=== PATIENT | male | born 1980 | race Caucasian/White ===

== ENCOUNTER 2017-02-13 17:56 | Inpatient (IN) | payer OTHER ==
[2017-02-13] VITALS (7 sets, daily range): BP systolic 120–143; BP diastolic 63–77; PULSE 81–94; RESP 18–20; TEMP 98.1; O2SAT 94–97
[~2017-02-13] VITALS: Ht 170.2 cm; Wt 89.5 kg
[2017-02-13] MEDS: ACETAMINOPHEN 1000 MG/100 ML VIAL IV SCH (05:45)
[~2017-02-13 17:56] MED LIST: LACTATED RINGER'S 1000 ML INJ 1,000 ML IV ONE; PROPOFOL 200 MG/20 ML AMP IV ONE
[2017-02-13] MEDS ORDERED: ONDANSETRON HCL 4 MG/2 ML VIAL ONE (18:09)
[2017-02-13] MEDS ORDERED: MORPHINE SULFATE 8 MG/ML INJ ONE (18:09)
[2017-02-13] MEDS ORDERED: SODIUM CHLORIDE 0.9% FLUSH 5 ML FLUSH IVF PRN (18:15)
[2017-02-13 18:29] LABS: I-STAT POTASSIUM 3.5 MMOL/L (3.5-4.9)
[2017-02-13] MEDS ORDERED: ceFAZolin 2 GM PREMIX 50 ML IV ONE (18:30)
[2017-02-13] MEDS ORDERED: DIPHTH/TETANUS/ACEL PERTUSSIS (BOOSTER) 0.5 ML VIAL/PFS IM ONE (18:30)
[2017-02-13 18:33] LABS: AUTOMATED NEUTROPHIL # 12.9 TH/MM3 (1.8-7.7); BASOPHIL # 0.1 TH/MM3 (0-0.2); BASOPHIL % 0.5 % (0.0-2.0); EOSINOPHIL # 0.1 TH/MM3 (0-0.4); EOSINOPHIL % 0.8 % (0.0-4.0); HEMATOCRIT 39.9 % (39.0-51.0); HEMO FLAGS AUTO DIFF; LYMPH % 12.4 % (9.0-44.0); MEAN CORPUSCULAR HEMOGLOBIN 29.9 PG (27.0-34.0); MEAN CORPUSCULAR HGB CONC 34.4 % (32.0-36.0); MONO % 5.3 % (0.0-8.0); PLATELET COUNT 219 TH/MM3 (150-450); RED BLOOD COUNT 4.58 MIL/MM3 (4.50-5.90); RED CELL DISTRIBUTION WIDTH 13.7 % (11.6-17.2)
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
[2017-02-13 18:54] LABS: BICARBONATE 24.9 MEQ/L (21.0-32.0)
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
[2017-02-13] MEDS ORDERED: IOHEXOL 350 MG/ML 10 ML VIAL (for RAD DIAG) IV ONE (18:57)
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
[2017-02-13 19:04] LABS: APTT (PATIENT) 22.8 SEC (24.3-30.1); PROTHROMBIN TIME - PATIENT 10.9 SEC (9.8-11.6)
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
[2017-02-13] MEDS ORDERED: VARE.5 PO (19:23)
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
[2017-02-13 19:29] LABS: SCAN/DIFF AUTO DIFF CONFIRMED
[2017-02-13 19:32] LABS: POTASSIUM 3.5 MEQ/L (3.5-5.1)
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
[2017-02-13] MEDS: LACTULOSE SYRUP 20 GM/30 ML CUP PO SCH (20:00)
[2017-02-13] MEDS ORDERED: ONDANSETRON HCL 4 MG/2 ML VIAL IV PRN (20:00)
[2017-02-13] MEDS ORDERED: CHLORHEXIDINE GLUCONATE 2 % 1 PACK (2 CLOTHS) TOP PRN (20:00)
[2017-02-13] MEDS ORDERED: MISCELLANEOUS NURSING INFORMATION XX SCH (20:00)
[2017-02-13] MEDS ORDERED: SODIUM CHLORIDE 0.9% FLUSH 5 ML FLUSH IV FLUSH PRN (20:00)
[2017-02-13] MEDS ORDERED: LIDOCAINE 1%/EPINEPHrine 1:100,000 SOLN 20 ML VIAL INFIL ONE (20:15)
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
[2017-02-13] MEDS: SODIUM CHLOR 0.9% 1000 ML INJ 1,000 ML IV SCH (20:27)
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
[2017-02-13] MEDS ORDERED: POTASSIUM PHOSPHATE MONOBASIC 500 MG TAB PO/TUBE PRN (21:04)
[2017-02-13] MEDS ORDERED: POTASSIUM PHOSPHATE INJ 30 MMOL in SODIUM CHLOR 0.9% 250 ML INJ 250 ML IV PRN (21:04)
[2017-02-13] MEDS ORDERED: SODIUM PHOSPHATE INJ 30 MMOL in SODIUM CHLOR 0.9% 250 ML INJ 240 ML IV PRN (21:15)
[2017-02-13] MEDS ORDERED: POTASSIUM CHLOR 40 MEQ PREMIX 100 ML IV PRN ×2 (21:15)
[2017-02-13] MEDS ORDERED: MAGNESIUM SULFATE INJ 2 GM in SODIUM CHLORIDE 0.9% INJ 96 ML IV PRN (21:15)
[2017-02-13] MEDS ORDERED: MAGNESIUM OXIDE 400 MG TAB PO PRN (21:15)
[2017-02-13] MEDS ORDERED: POTASSIUM CHLOR 20 MEQ PREMIX 100 ML IV PRN ×2 (21:15)
[2017-02-13] MEDS ORDERED: MAGNESIUM SULFATE INJ 4 GM in SODIUM CHLORIDE 0.9% INJ 92 ML IV PRN (21:15)
[2017-02-13] MEDS ORDERED: POTASSIUM PHOSPHATE MONOBASIC 500 MG TAB PO PRN (21:15)
[2017-02-13] MEDS ORDERED: RESP: ALBUTEROL 2.5 MG/3 ML NEB (PRN) NEB (21:30)
[2017-02-13] MEDS: RESP: ALBUTEROL 2.5 MG/IPRATROPIUM 0.5 MG NEB (SCH) NEB (22:05)
[2017-02-13] MEDS: REMOVE OLD PATCH T-DERMAL SCH (22:30)
--- NOTE | 2017-02-13 22:59 | PD.ORT.PN ---
Subjective Subjective Remarks Right Leg and Shoulder Pain Objective Vitals Vital Signs Date Time Temp Pulse Resp B/P Pulse Ox O2 Delivery O2 Flow Rate FiO2 02/13/17 20:29 89 20 129/74 97 Room Air 02/13/17 19:23 97 Room Air 02/13/17 19:14 97 Room Air 02/13/17 19:05 98.1 81 18 143/75 96 Result Diagram: 02/13/17 1827 02/13/17 1820 Other Results Laboratory Tests Test 02/13/17 18:27 Prothrombin Time 10.9 SEC (9.8-11.6) Prothromb Time International 1.0 RATIO Ratio Imaging Last 24 hours Impressions Thoracic Spine CT 02/13/171812 Signed Impressions: Service Date/Time: Monday, February 13, 2017 18:45 - CONCLUSION: 1. Fractures of the left transverse process at T1. 2. Fractures of the right transverse processes at T7, T8 and T9. Arnol Torres MD Pelvis X-Ray 02/13/171812 Signed Impressions: Service Date/Time: Monday, February 13, 2017 18:14 - CONCLUSION: Suboptimal study demonstrating no acute fracture. Shyam Barrett MD Maxillofacial CT 02/13/171812 Signed Impressions: Service Date/Time: Monday, February 13, 2017 18:39 - CONCLUSION: 1. No acute facial bone fracture identified. 2. Extensive mucosal thickening and opacification of the paranasal sinuses with air-fluid levels which may indicate acute this. Shyam Barrett MD Lumbar Spine CT 02/13/171812 Signed Impressions: Service Date/Time: Monday, February 13, 2017 18:45 - CONCLUSION: 1. No acute fracture or malalignment. 2. Mild to moderate scoliosis. Shyam Barrett MD Head CT 02/13/171812 Signed Impressions: Service Date/Time: Monday, February 13, 2017 18:39 - CONCLUSION: 1. Soft tissue swelling over left frontal bone with no acute fracture. 2. No evidence of intracranial hemorrhage or mass effect. Shyam Barrett MD Chest X-Ray 02/13/171812 Signed Impressions: Service Date/Time: Monday, February 13, 2017 18:16 - CONCLUSION: Limited study. Multiple right-sided rib fractures and right scapular fracture.. Anrol Torres MD Chest CT 02/13/171812 Signed Impressions: Service Date/Time: Monday, February 13, 2017 18:45 - CONCLUSION: 1. Small right basilar pneumothorax. 2. Small area of lung contusion in the right upper lobe. 3. Nondisplaced fractures of the right lateral third through seventh ribs. Shyam Barrett MD ADDENDUM: There is a comminuted fracture of the right scapula. Shyam Barrett MD Cervical Spine CT 02/13/171812 Signed Impressions: Service Date/Time: Monday, February 13, 2017 18:39 - CONCLUSION: Negative trauma CT. Shyam Barrett MD Abdomen/Pelvis CT 02/13/171812 Signed Impressions: Service Date/Time: Monday, February 13, 2017 18:45 - CONCLUSION: 1. There is an area of linear low-density in the spleen likely representing a small splenic laceration. No hemoperitoneum. 2. Acute findings in lateral chest. Please refer to CT chest for further detail. Arnol Torres MD Tibia/Fibula X-Ray 02/13/17 0000 Signed Impressions: Service Date/Time: Monday, February 13, 2017 18:17 - CONCLUSION: 1. Proximal displaced fibular fracture. 2. Fracture of the proximal/mid shaft of the tibia. 3. Probable lateral tibial plateau fracture. Arnol Torres MD Tibia/Fibula X-Ray 02/13/17 0000 Signed Impressions: Service Date/Time: Monday, February 13, 2017 18:28 - CONCLUSION: Negative limited single AP view. If any concern remains then a 2 view study would be recommended. Shyam Barrett MD Objective Remarks Full consult dictated. Assessment & Plan Problem List: (1) Pneumothorax (2) Spleen hematoma (3) Open fracture of right tibia and fibula (4) Scapular fracture Assessment and Plan The multiple traumatic injuries were reviewed with patient The options of treatment were discussed The recommendation is to proceed now with I and D and ORIF of the open tibia fracture The risks of enlarging pneumothorax and need for chest tube reviewed The risks of progression of splenic bleed and need for intervention discussed The possibility of nerve damage, blood vessel damage and mechanical complication discussed Informed consent was obtained with Danielito Sanchez MD Feb 13, 2017 22:59
[2017-02-13 23:14] LABS: AMPHETAMINE, URINE NEG (NEG); BARBITURATES, URINE NEG (NEG); COCAINE, URINE NEG (NEG)
[2017-02-13 23:22] LABS: BACTERIA, URINE OCC /hpf; BLOOD, URINE LARGE (NEG); COMMENT (UR) CATH-CULTURE IND; CULTURE IF INDICATED CATH CULTURE IND; GLUCOSE,URINE NEG (NEG); KETONE, URINE NEG (NEG); MUCUS URINE FEW /lpf (OCC); NITRITE,URINE NEG (NEG); SQUAMOUS EPITHELIAL CELL URINE <1 /hpf (0-5); URINE COLOR YELLOW (YELLW/STRAW)
--- NOTE | 2017-02-13 23:30 | RADRPT ---
EXAM DATE/TIME: 02/13/2017 23:13 [facility] COMPARISON: CHEST SINGLE AP, February 13, 2017, 18:16. CT THORAX W CONTRAST, February 13, 2017, 18:45. INDICATIONS : Evaluate for pneumothorax. MEDICAL HISTORY : None. SURGICAL HISTORY : None. ENCOUNTER: Subsequent ACUITY: 1 day PAIN SCORE: 0/10 LOCATION: Bilateral chest FINDINGS: No pneumothorax identified on the current exam. Minimal basilar atelectasis. Mild scoliosis. No fract ures of the right third through seventh ribs and right scapula. No effusion. Heart size normal. CONCLUSION: 1. No pneumothorax. Right-sided rib fractures and scapular fracture with air in the right chest wall. Garrison Chi MD on February 13, 2017 at 23:27 Board Certified Radiologist. This report was verified electronically.
[2017-02-14] VITALS (22 sets, daily range): BP systolic 131–152; BP diastolic 59–85; PULSE 74–95; RESP 12–20; TEMP 97–99; O2SAT 93–100
[2017-02-14] MEDS ORDERED: NALOXONE HCL 0.4 MG/ML AMP IV PRN (00:30)
[2017-02-14] MEDS ORDERED: MISCELLANEOUS NURSING INFORMATION XX PRN (00:30)
[2017-02-14] MEDS ORDERED: Post-op Orders (for Pharmacy) MISC XX ONE (00:30)
[2017-02-14] MEDS ORDERED: ACETAMINOPHEN 325 MG TAB PO PRN (00:30)
[2017-02-14] MEDS ORDERED: MISCELLANEOUS PHARMACY INFORMATION XX ONE (00:30)
[2017-02-14] MEDS ORDERED: MAGNESIUM HYDROXIDE SUSP 30 ML CUP PO PRN (00:30)
[2017-02-14] MEDS ORDERED: SODIUM CHLORIDE 0.9% FLUSH 5 ML FLUSH IVF PRN (00:30)
[2017-02-14] MEDS ORDERED: ONDANSETRON HCL 4 MG/2 ML VIAL IVP PRN (00:30)
[2017-02-14] MEDS ORDERED: ACETAMINOPHEN/HYDROcodone 325 MG/5 MG TAB PO PRN (00:30)
[2017-02-14] MEDS ORDERED: ceFAZolin INJ 1,000 MG VIAL IV ONE (01:00)
[2017-02-14] MEDS ORDERED: GENTAMICIN SULFATE 80 MG/2 ML VIAL ONE ×2 (01:02)
--- NOTE | 2017-02-14 02:33 | PD.OP ---
Operative Report Preoperative Diagnosis: (1) Open fracture of right tibia and fibula Postoperative Diagnosis: (1) Open fracture of right tibia and fibula (2) Internal derangement of right knee Procedure: 1) Right Tibia Intramedullary Rodding with Synthes Suprapatellar Approach 2) Right Open Tibia Irrigation and Debridement Anesthesia: General Surgeon: Danielito Mckeon Cured Meats Supervisor(s): Luigi CHRISTIANSEN Operation and Findings: see dictation Danielito Mckeon MD Feb 14, 2017 02:33
[2017-02-14] MEDS ORDERED: fentaNYL CITRATE 250 MCG/5 ML AMP ONE (02:47)
[2017-02-14] MEDS ORDERED: MIDAZOLAM HCL 2 MG/2 ML VIAL ONE (02:47)
--- NOTE | 2017-02-14 02:49 | RADRPT ---
EXAM DATE/TIME: 02/14/2017 01:31 [facility] COMPARISON: No previous studies available for comparison. INDICATIONS : Open reduction internal fixation of right mid-shaft tibia fracture with a Segond fracture. MEDICAL HISTORY : None. SURGICAL HISTORY : None. ENCOUNTER: Subsequent ACUITY: 1 day PAIN SCORE: Non-responsive. LOCATION: Right tibia FINDINGS: There is mark fixation of a tibial shaft fracture with anatomic alignment. Fibular fracture also noted . No complications identified. CONCLUSION: Mark fixation right tibia. Garrison Chi MD on February 14, 2017 at 2:47 Board Certified Radiologist. This report was verified electronically.
[2017-02-14] MEDS ORDERED: LABETALOL HCL 100 MG/20 ML VIAL ONE (03:36)
[2017-02-14] MEDS: CHLORHEXIDINE GLUCONATE 2 % 1 PACK (2 CLOTHS) TOP SCH ×2 (04:00→20:38)
[2017-02-14] MEDS: SODIUM CHLOR 0.45% 1000 ML INJ 1,000 ML IV SCH ×3 (04:00→20:28)
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
[2017-02-14 05:02] LABS: BASOPHIL % 0.2 % (0.0-2.0); HEMATOCRIT 34.7 % (39.0-51.0); HEMO FLAGS DIFF FINAL; LYMPH % 6.7 % (9.0-44.0); LYMPHOCYTE # 0.5 TH/MM3 (1.0-4.8); MEAN CELL VOLUME 87.5 FL (80.0-100.0); MEAN CORPUSCULAR HEMOGLOBIN 29.2 PG (27.0-34.0); MEAN CORPUSCULAR HGB CONC 33.4 % (32.0-36.0); MONO % 9.7 % (0.0-8.0); NEUT % 83.4 % (16.0-70.0); PLATELET COUNT 167 TH/MM3 (150-450); RED BLOOD COUNT 3.96 MIL/MM3 (4.50-5.90); RED CELL DISTRIBUTION WIDTH 13.7 % (11.6-17.2); WHITE BLOOD COUNT 7.2 TH/MM3 (4.0-11.0)
[2017-02-14] MEDS: RESP: ALBUTEROL 2.5 MG/IPRATROPIUM 0.5 MG NEB (SCH) NEB ×4 (05:16→20:05)
[2017-02-14 05:39] LABS: BICARBONATE 24.3 MEQ/L (21.0-32.0); POTASSIUM 4.9 MEQ/L (3.5-5.1)
[2017-02-14] MEDS: MORPHINE SULFATE 30 MG/30 ML PCA IV SCH (05:47)
[2017-02-14] MEDS: SODIUM CHLOR 0.9% 1000 ML INJ 1,000 ML IV SCH ×3 (05:51→20:38)
[2017-02-14] MEDS: PCA - TOTAL MG MORPHINE DELIVERED PER SHIFT SCH ×3 (06:00→20:34)
[2017-02-14] MEDS: ceFAZolin 2 GM PREMIX 50 ML IV SCH ×3 (06:00→20:35)
[2017-02-14 08:24] LABS: CALCIUM-PROTEIN CORRECTED 8.7 MG/DL (8.5-10.1)
--- NOTE | 2017-02-14 08:25 | RADRPT ---
EXAM DATE/TIME: 02/14/2017 08:07 [facility] COMPARISON: No previous studies available for comparison. INDICATIONS : Evaluate for pneumothorax. MEDICAL HISTORY : None. SURGICAL HISTORY : None. ENCOUNTER: Subsequent ACUITY: 3 days PAIN SCORE: 4/10 LOCATION: Right shoulder. FINDINGS: A single view of the chest demonstrates bilateral pneumothorax measuring 1.3 cm pleural separation. L eft basal atelectasis. No mediastinal shift. Multiple right-sided rib fractures with subcutaneous emp hysema. Scoliosis. Scapular fracture on the right. CONCLUSION: 1. Right lateral pneumothorax. 2. Multiple right-sided rib fractures. 3. Left basilar atelectasis. Arnol Torres MD on February 14, 2017 at 8:22 Board Certified Radiologist. This report was verified electronically.
--- NOTE | 2017-02-14 08:54 | RADRPT ---
EXAM DATE/TIME: 02/14/2017 08:28 [facility] COMPARISON: TIBIA/FIBULA RIGHT (AP/LAT), February 13, 2017, 18:17. INDICATIONS : Pain post operation. MEDICAL HISTORY : None. SURGICAL HISTORY : Tibial clare. ENCOUNTER: Initial ACUITY: 1 day PAIN SCORE: 7/10 LOCATION: Right ankle. FINDINGS: Two view examination was performed of the right ankle. The bony structures are in normal alignment. Intramedullary clare in the tibia. There is soft tissue swelling and subcutaneous emphysema anteriorly and laterally. Ankle mortise is intact. Distal fibula and tibia are intact. Minimal lucency along the superior navicular bone seen on lateral view could be related to a tiny nondisplaced fracture. CONCLUSION: 1. Internal fixation of the tibia. 2. Soft tissue swelling/emphysema laterally. 3. Minimal lucency within the superior navicular bone seen only on lateral view could be related to n ondisplaced fracture. Arnol Torres MD on February 14, 2017 at 8:50 Board Certified Radiologist. This report was verified electronically.
[2017-02-14] MEDS: SODIUM CHLORIDE 0.9% FLUSH 5 ML FLUSH IVF SCH ×2 (09:00→20:32)
[2017-02-14] MEDS: SODIUM CHLORIDE 0.9% FLUSH 5 ML FLUSH IV FLUSH SCH ×2 (09:00→20:32)
[2017-02-14] MEDS: NEOMYCIN/POLYMYXIN/BACITRACIN OINT 0.9 GM PACKET TOPICAL SCH ×2 (09:00→20:34)
--- NOTE | 2017-02-14 09:04 | RADRPT ---
EXAM DATE/TIME: 02/14/2017 07:36 [facility] COMPARISON: TIBIA/FIBULA RIGHT (AP/LAT), February 13, 2017, 18:17. INDICATIONS : Internal derangement. MEDICAL HISTORY : Hypertension. SURGICAL HISTORY : ORIF right tibia ENCOUNTER: Initial ACUITY: 1 day PAIN SCORE: 8/10 LOCATION: Right lower extremity TECHNIQUE: Multiplanar, multisequence MRI examination was performed without contrast. FINDINGS: CRUCIATE LIGAMENTS: ACL and PCL are intact. MENISCI: Medial and lateral menisci are intact. COLLATERAL LIGAMENTS: There does appear to be an MCL strain. No discrete tear. There is also and LCL strain. BONE/CARTILAGE: There is an avulsion fracture of the lateral aspect of lateral tibial plateau. Intramedullary clare in tibia. MISCELLANEOUS: No evidence of joint effusion. Extensive soft tissue swelling. Patellar tendon and ligament are intac t. Several T1 dark foci seen within the joint space posterior to the patella could be related to smal l loose bodies. There is some air in the soft tissues laterally. CONCLUSION: 1. Avulsion fracture of the lateral aspect lateral tibial plateau. 2. There does appear to be MCL and LCL strains. 3. Extensive soft tissue swelling greatest along the lateral aspect of the knee. 4. Possible small loose bodies posterior to the patella. Arnol Torres MD on February 14, 2017 at 8:55 Board Certified Radiologist. This report was verified electronically.
[2017-02-14] MEDS ORDERED: BACITRACIN TOP OINT 15 GM TUBE ONE (09:57)
[2017-02-14] MEDS: LIDOCAINE HCL 5% PATCH TD SCH (12:28)
[2017-02-14] MEDS: CALCIUM/VITAMIN D 250 MG/125 U TAB PO SCH ×2 (13:00→13:36)
[2017-02-14] MEDS: MULTIVITAMINS/MINERALS THERAPEUTIC TAB PO SCH (13:27)
[2017-02-14] MEDS: METHOCARBAMOL 500 MG TAB PO SCH ×2 (13:30→20:38)
[2017-02-14] MEDS: FOLIC ACID 1 MG TAB PO SCH (13:30)
[2017-02-14] MEDS: THIAMINE HCL 100 MG TAB PO SCH (13:35)
[2017-02-14] MEDS: DOCUSATE SODIUM 50 MG/SENNA 8.6 MG TAB PO SCH ×2 (13:35→20:33)
[2017-02-14] MEDS: LACTULOSE SYRUP 20 GM/30 ML CUP PO SCH (13:36)
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
[2017-02-14] MEDS ORDERED: MIDAZOLAM HCL 10 MG/10 ML VIAL IV PUSH ONE (15:30)
[2017-02-14] MEDS ORDERED: fentaNYL CITRATE 250 MCG/5 ML AMP IV ONE (15:30)
[2017-02-14] MEDS ORDERED: LIDOCAINE HCL 1% 50 ML VIAL INFIL ONE (15:30)
--- NOTE | 2017-02-14 17:11 | RADRPT ---
EXAM DATE/TIME: 02/14/2017 16:29 [facility] COMPARISON: CHEST SINGLE AP, February 14, 2017, 8:07. INDICATIONS : Right sided chest tube placement. Followup right pneumothorax. MEDICAL HISTORY : Hypertension. SURGICAL HISTORY : ORIF right tibia ENCOUNTER: Subsequent ACUITY: 2 days PAIN SCORE: Non-responsive. LOCATION: Right chest FINDINGS: A single AP semierect view of the chest was obtained and demonstrates interval placement of right-bryce ed chest tube. The previously noted pneumothorax is no longer visualized. There is subcutaneous emphy sema over the right lateral chest wall. The known right rib fractures are faintly visualized. The hea rt size remains within normal limits. There is patchy opacity at the lung bases most consistent with atelectasis. There is a mild scoliosis. There is a comminuted fracture of the right scapula. CONCLUSION: 1. Interval placement of right-sided chest tube. The previously noted pneumothorax is no longer visua lized. 2. Patchy opacity both lung bases most consistent with atelectasis. 3. Comminuted right scapular fracture. Shyam Barrett MD on February 14, 2017 at 17:08 Board Certified Radiologist. This report was verified electronically.
[2017-02-14] MEDS: ACETAMINOPHEN 1000 MG/100 ML VIAL IV SCH (17:23)
--- NOTE | 2017-02-14 17:32 | PD.OP ---
Operative Report Preoperative Diagnosis: (1) Pneumothorax (2) Multiple rib fractures Postoperative Diagnosis: (1) Multiple rib fractures (2) Pneumothorax Procedure: CT tube thoracostomy right Anesthesia: 2 mg versed x2,50 mcg fentanylx1,20cc 1%lidocaine Surgeon: Abeba Camacho Pigment Processor(s): none Operation and Findings: Small PTX on CT scan-shows about 20% PTX on fu Xray.Proceeded with CT thoracostomy on this multitrauma patient with multiple broken ribs. Right chest was sterilely prepped and draped.Transverse incision 5 ICR.Dissection to rib-penetrated superior margin-intrapleural position ascertained.[address] inserted and secured to skin with 0-silk.Dressing applied.CXR shows resolution of PTX and good position of CT. Moderate Sedation provided with fentanyl,versed.Patient monitored and 100% O2 applied. Abeba Camacho MD Feb 14, 2017 17:32
--- NOTE | 2017-02-14 19:38 | PD.ORT.PN ---
Subjective Subjective Remarks Patient comfortable. Pain controlled. Objective Vitals Vital Signs Date Time Temp Pulse Resp B/P Pulse Ox O2 Delivery O2 Flow Rate FiO2 02/14/17 18:59 95 15 135/65 95 02/14/17 18:30 84 14 140/65 93 02/14/17 17:53 83 12 145/65 97 02/14/17 17:23 86 12 152/71 100 02/14/17 17:08 87 12 151/85 100 02/14/17 16:53 85 12 141/63 100 02/14/17 16:38 87 12 141/63 100 02/14/17 16:30 98 15.00 100 02/14/17 16:23 98.4 89 12 135/62 100 02/14/17 16:17 90 12 134/59 98 02/14/17 16:14 90 16 142/76 100 02/14/17 16:09 85 12 134/63 100 02/14/17 14:30 98.7 93 16 132/79 97 02/14/17 14:00 99.0 85 16 131/72 96 Nasal Cannula 3 02/14/17 12:30 76 15 146/72 96 Nasal Cannula 3 02/14/17 10:30 77 16 130/73 97 Nasal Cannula 3 02/14/17 09:30 84 15 142/67 93 Nasal Cannula 3 02/14/17 08:30 84 15 142/67 93 Nasal Cannula 3 02/14/17 07:30 98.6 84 15 155/93 95 Nasal Cannula 3 02/14/17 07:00 79 14 150/79 97 Nasal Cannula 3 02/14/17 06:00 15 02/14/17 06:00 77 15 145/66 96 Nasal Cannula 3 02/14/17 05:47 12 02/14/17 05:17 97 Nasal Cannula 3.00 02/14/17 05:00 99.4 68 12 157/81 99 Nasal Cannula 3 02/14/17 04:00 73 12 183/93 98 Nasal Cannula 3 02/14/17 03:45 69 15 164/85 99 Nasal Cannula 3 02/14/17 03:30 73 12 183/93 98 Nasal Cannula 3 02/14/17 03:15 73 12 177/87 98 Nasal Cannula 3 02/14/17 03:00 76 12 177/87 97 Nasal Cannula 3 02/14/17 02:45 85 12 157/83 93 Nasal Cannula 3 02/14/17 02:40 98.4 85 16 163/75 98 Nasal Cannula 3 02/13/17 23:58 92 18 143/77 98 02/13/17 23:15 84 18 126/69 97 Room Air 02/13/17 22:30 90 18 120/63 95 Room Air 02/13/17 22:05 95 02/13/17 21:15 94 18 132/65 94 Room Air 02/13/17 20:29 89 20 129/74 97 Room Air I/O 02/13/17 02/13/17 02/13/17 02/14/17 02/14/17 02/14/17 07:00 15:00 23:00 07:00 15:00 23:00 Intake Total 2575 ml 950 ml Output Total 1250 ml 875 ml Balance 1325 ml 75 ml Intake Oral 125 ml IV Total 575 ml Other 2000 ml 825 ml Output Urine Total 350 ml 875 ml Estimated Blood Loss 100 ml Other 800 ml Result Diagram: 02/14/17 0410 02/14/17 0410 Imaging Last 24 hours Impressions Thoracic Spine CT 02/13/171812 Signed Impressions: Service Date/Time: Monday, February 13, 2017 18:45 - CONCLUSION: 1. Fractures of the left transverse process at T1. 2. Fractures of the right transverse processes at T7, T8 and T9. Arnol Torres MD Pelvis X-Ray 02/13/171812 Signed Impressions: Service Date/Time: Monday, February 13, 2017 18:14 - CONCLUSION: Suboptimal study demonstrating no acute fracture. Shyam Barrett MD Maxillofacial CT 02/13/171812 Signed Impressions: Service Date/Time: Monday, February 13, 2017 18:39 - CONCLUSION: 1. No acute facial bone fracture identified. 2. Extensive mucosal thickening and opacification of the paranasal sinuses with air-fluid levels which may indicate acute this. Shyam Barrett MD Lumbar Spine CT 02/13/171812 Signed Impressions: Service Date/Time: Monday, February 13, 2017 18:45 - CONCLUSION: 1. No acute fracture or malalignment. 2. Mild to moderate scoliosis. Shyam Barrett MD Head CT 02/13/171812 Signed Impressions: Service Date/Time: Monday, February 13, 2017 18:39 - CONCLUSION: 1. Soft tissue swelling over left frontal bone with no acute fracture. 2. No evidence of intracranial hemorrhage or mass effect. Shyam Barrett MD Chest X-Ray 02/13/171812 Signed Impressions: Service Date/Time: Monday, February 13, 2017 18:16 - CONCLUSION: Limited study. Multiple right-sided rib fractures and right scapular fracture.. Arnol Torres MD Chest CT 02/13/171812 Signed Impressions: Service Date/Time: Monday, February 13, 2017 18:45 - CONCLUSION: 1. Small right basilar pneumothorax. 2. Small area of lung contusion in the right upper lobe. 3. Nondisplaced fractures of the right lateral third through seventh ribs. Shyam Barrett MD ADDENDUM: There is a comminuted fracture of the right scapula. Shyam Barrett MD Cervical Spine CT 02/13/171812 Signed Impressions: Service Date/Time: Monday, February 13, 2017 18:39 - CONCLUSION: Negative trauma CT. Shyam Barrett MD Abdomen/Pelvis CT 02/13/171812 Signed Impressions: Service Date/Time: Monday, February 13, 2017 18:45 - CONCLUSION: 1. There is an area of linear low-density in the spleen likely representing a small splenic laceration. No hemoperitoneum. 2. Acute findings in lateral chest. Please refer to CT chest for further detail. Arnol Torres MD Tibia/Fibula X-Ray 02/13/17 0000 Signed Impressions: Service Date/Time: Monday, February 13, 2017 18:17 - CONCLUSION: 1. Proximal displaced fibular fracture. 2. Fracture of the proximal/mid shaft of the tibia. 3. Probable lateral tibial plateau fracture. Arnol Torres MD Tibia/Fibula X-Ray 02/13/17 0000 Signed Impressions: Service Date/Time: Monday, February 13, 2017 18:28 - CONCLUSION: Negative limited single AP view. If any concern remains then a 2 view study would be recommended. Shyam Barrett MD Procedures 1) Right Tibia Intramedullary Rodding with Synthes Suprapatellar Approach 2) Right Open Tibia Irrigation and Debridement Objective Remarks Right knee Gildardo wrap and dressing C/D/I calves soft negative Lois's NVI Assessment & Plan Problem List: (1) Pneumothorax (2) Spleen hematoma (3) Open fracture of right tibia and fibula (4) Scapular fracture Assessment and Plan Reviewed MRI images which demonstrates strains to both medial collateral ligament and lateral collateral ligament, also an avulsion fracture to the lateral aspect of the lateral tibial plateau. The right ankle x-rays demonstrates a nondisplaced navicular fracture. At this time conservative management. Pain management DVT prophylaxis - Lovenox Physical therapy - Non-weight bearing with active assistive ROM RLE D/C planning Patient's case discussed with Luigi Romo Feb 14, 2017 19:38
[2017-02-14] MEDS: REMOVE OLD PATCH T-DERMAL SCH (20:33)
[2017-02-14] MEDS: FAMOTIDINE 20 MG TAB PO SCH (20:33)
[2017-02-14] MEDS: diphenhydrAMINE HCL 25 MG CAP PO PRN (22:12)
[2017-02-15] VITALS (8 sets, daily range): BP systolic 129–143; BP diastolic 63–79; PULSE 90–112; RESP 17–26; TEMP 98–100.4; O2SAT 88–97
[2017-02-15] MEDS: SODIUM CHLOR 0.45% 1000 ML INJ 1,000 ML IV SCH ×2 (02:29→16:28)
[2017-02-15] MEDS: ENOXAPARIN SODIUM 40 MG/0.4 ML SYRINGE SQ SCH (02:29)
[2017-02-15] MEDS: MORPHINE SULFATE 30 MG/30 ML PCA IV SCH ×3 (02:30→22:22)
[2017-02-15] MEDS: RESP: ALBUTEROL 2.5 MG/IPRATROPIUM 0.5 MG NEB (SCH) NEB ×4 (03:34→21:09)
[2017-02-15] MEDS: PCA - TOTAL MG MORPHINE DELIVERED PER SHIFT SCH ×3 (05:09→22:00)
[2017-02-15] MEDS: METHOCARBAMOL 500 MG TAB PO SCH ×3 (05:10→21:43)
[2017-02-15] MEDS: diphenhydrAMINE HCL 25 MG CAP PO PRN (05:10)
[2017-02-15 05:14] LABS: AUTOMATED NEUTROPHIL # 6.1 TH/MM3 (1.8-7.7); BASOPHIL % 0.2 % (0.0-2.0); EOSINOPHIL % 0.3 % (0.0-4.0); HEMO FLAGS DIFF FINAL; LYMPH % 9.2 % (9.0-44.0); LYMPHOCYTE # 0.7 TH/MM3 (1.0-4.8); MEAN CELL VOLUME 86.4 FL (80.0-100.0); MEAN CORPUSCULAR HEMOGLOBIN 29.8 PG (27.0-34.0); MEAN CORPUSCULAR HGB CONC 34.4 % (32.0-36.0); MONO % 7.3 % (0.0-8.0); PLATELET COUNT 161 TH/MM3 (150-450); RED CELL DISTRIBUTION WIDTH 13.4 % (11.6-17.2); WHITE BLOOD COUNT 7.4 TH/MM3 (4.0-11.0)
[2017-02-15 05:53] LABS: ALKALINE PHOSPHATASE 53 U/L (45-117); ALT (GPT) 33 U/L (12-78); ANION GAP 8 MEQ/L (5-15); AST (GOT) 63 U/L (15-37); BICARBONATE 25.5 MEQ/L (21.0-32.0); BLOOD UREA NITROGEN 8 MG/DL (7-18); CHLORIDE 102 MEQ/L (98-107); GLOMERULAR FILTRATION RATE 115 ML/MIN (>89); MAGNESIUM 2.1 MG/DL (1.5-2.5); POTASSIUM 4.1 MEQ/L (3.5-5.1); SODIUM (NA) 135 MEQ/L (136-145); TOTAL BILIRUBIN ADULT 0.5 MG/DL (0.2-1.0)
--- NOTE | 2017-02-15 06:32 | RADRPT ---
EXAM DATE/TIME: 02/15/2017 05:11 [facility] COMPARISON: CHEST SINGLE AP, February 14, 2017, 16:29. INDICATIONS : Evaluate right side chest tube and pneumothorax, slightly short of breath, some coughing MEDICAL HISTORY : Hypertension. pneumothorax SURGICAL HISTORY : ORIF right tibia, chest tube ENCOUNTER: Subsequent ACUITY: 3 days PAIN SCORE: 9/10 LOCATION: Bilateral chest FINDINGS: Right-sided chest tube, subcutaneous emphysema is seen along the right chest slightly increased in pr ominence. I do not see a pneumothorax. There is a large left effusion and left lung consolidation new from previous. Comminuted fracture of right scapula. CONCLUSION: A discrete pneumothorax is not seen on the right. There is increased subcutaneous emphysema noted wit h chest tube in place. Left lung consolidation and left effusion is noted. Sb Cooper MD on February 15, 2017 at 6:29 Board Certified Radiologist. This report was verified electronically.
[2017-02-15] MEDS: NEOMYCIN/POLYMYXIN/BACITRACIN OINT 0.9 GM PACKET TOPICAL SCH ×2 (09:00→20:20)
[2017-02-15] MEDS: LIDOCAINE HCL 5% PATCH TD SCH (09:00)
[2017-02-15] MEDS: CALCIUM/VITAMIN D 250 MG/125 U TAB PO SCH ×3 (09:00→17:16)
[2017-02-15] MEDS: SODIUM CHLORIDE 0.9% FLUSH 5 ML FLUSH IVF SCH ×2 (09:00→20:16)
[2017-02-15] MEDS: SODIUM CHLORIDE 0.9% FLUSH 5 ML FLUSH IV FLUSH SCH (09:00)
[2017-02-15] MEDS: LACTULOSE SYRUP 20 GM/30 ML CUP PO SCH (09:00)
[2017-02-15] MEDS: FOLIC ACID 1 MG TAB PO SCH (09:00)
[2017-02-15] MEDS: KETOROLAC TROMETHAMINE 60 MG/2 ML (IM) VIAL IM PRN ×2 (09:32→17:15)
[2017-02-15] MEDS: DOCUSATE SODIUM 50 MG/SENNA 8.6 MG TAB PO SCH ×2 (09:37→20:15)
[2017-02-15] MEDS: MULTIVITAMINS/MINERALS THERAPEUTIC TAB PO SCH (09:37)
[2017-02-15] MEDS: THIAMINE HCL 100 MG TAB PO SCH (09:37)
[2017-02-15] MEDS: SODIUM CHLOR 0.9% 1000 ML INJ 1,000 ML IV SCH (11:51)
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
--- NOTE | 2017-02-15 12:36 | PD.ORT.PN ---
Subjective Subjective Remarks Patient c/o right leg pain, generalized weakness and pain. Family at bedside. Objective Vitals Vital Signs Date Time Temp Pulse Resp B/P Pulse Ox O2 Delivery O2 Flow Rate FiO2 02/15/17 12:00 98.8 98 25 136/71 97 02/15/17 10:32 19 02/15/17 09:19 94 Nasal Cannula 5.00 02/15/17 08:00 100.4 112 26 136/79 88 02/15/17 05:09 18 02/15/17 04:00 98.0 90 20 129/74 97 02/15/17 02:30 18 02/15/17 00:00 91 20 136/63 96 02/14/17 20:34 16 02/14/17 20:10 87 02/14/17 20:05 95 Nasal Cannula 2.50 02/14/17 20:00 99.0 84 20 131/60 95 02/14/17 18:59 95 15 135/65 95 02/14/17 18:30 84 14 140/65 93 02/14/17 17:53 83 12 145/65 97 02/14/17 17:23 86 12 152/71 100 02/14/17 17:08 87 12 151/85 100 02/14/17 16:53 85 12 141/63 100 02/14/17 16:38 87 12 141/63 100 02/14/17 16:30 98 15.00 100 02/14/17 16:23 98.4 89 12 135/62 100 02/14/17 16:17 90 12 134/59 98 02/14/17 16:14 90 16 142/76 100 02/14/17 16:09 85 12 134/63 100 02/14/17 14:30 98.7 93 16 132/79 97 02/14/17 14:00 99.0 85 16 131/72 96 Nasal Cannula 3 I/O 02/14/17 02/14/17 02/14/17 02/15/17 02/15/17 02/15/17 07:00 15:00 23:00 07:00 15:00 23:00 Intake Total 2575 ml 950 ml 1255 ml 1030 ml Output Total 1250 ml 875 ml 1035 ml 765 ml Balance 1325 ml 75 ml 220 ml 265 ml Intake Oral 125 ml 480 ml 240 ml IV Total 575 ml 775 ml 790 ml Other 2000 ml 825 ml Output Urine Total 350 ml 875 ml 1000 ml 750 ml Chest Tube Drainage Total 35 ml 15 ml Estimated Blood Loss 100 ml Other 800 ml # Bowel Movements 0 0 Result Diagram: 02/15/17 0435 02/15/17 0436 Imaging Last 24 hours Impressions Thoracic Spine CT 02/13/171812 Signed Impressions: Service Date/Time: Monday, February 13, 2017 18:45 - CONCLUSION: 1. Fractures of the left transverse process at T1. 2. Fractures of the right transverse processes at T7, T8 and T9. Arnol Torres MD Pelvis X-Ray 02/13/171812 Signed Impressions: Service Date/Time: Monday, February 13, 2017 18:14 - CONCLUSION: Suboptimal study demonstrating no acute fracture. Shyam Barrett MD Maxillofacial CT 02/13/171812 Signed Impressions: Service Date/Time: Monday, February 13, 2017 18:39 - CONCLUSION: 1. No acute facial bone fracture identified. 2. Extensive mucosal thickening and opacification of the paranasal sinuses with air-fluid levels which may indicate acute this. Shyam Barrett MD Lumbar Spine CT 02/13/171812 Signed Impressions: Service Date/Time: Monday, February 13, 2017 18:45 - CONCLUSION: 1. No acute fracture or malalignment. 2. Mild to moderate scoliosis. Shyam Barrett MD Head CT 02/13/171812 Signed Impressions: Service Date/Time: Monday, February 13, 2017 18:39 - CONCLUSION: 1. Soft tissue swelling over left frontal bone with no acute fracture. 2. No evidence of intracranial hemorrhage or mass effect. Shyam Barrett MD Chest X-Ray 02/13/171812 Signed Impressions: Service Date/Time: Monday, February 13, 2017 18:16 - CONCLUSION: Limited study. Multiple right-sided rib fractures and right scapular fracture.. Arnol Torres MD Chest CT 02/13/171812 Signed Impressions: Service Date/Time: Monday, February 13, 2017 18:45 - CONCLUSION: 1. Small right basilar pneumothorax. 2. Small area of lung contusion in the right upper lobe. 3. Nondisplaced fractures of the right lateral third through seventh ribs. Shyam Barrett MD ADDENDUM: There is a comminuted fracture of the right scapula. Shyam Barrett MD Cervical Spine CT 02/13/171812 Signed Impressions: Service Date/Time: Monday, February 13, 2017 18:39 - CONCLUSION: Negative trauma CT. Shyam Barrett MD Abdomen/Pelvis CT 02/13/171812 Signed Impressions: Service Date/Time: Monday, February 13, 2017 18:45 - CONCLUSION: 1. There is an area of linear low-density in the spleen likely representing a small splenic laceration. No hemoperitoneum. 2. Acute findings in lateral chest. Please refer to CT chest for further detail. Arnol Torres MD Tibia/Fibula X-Ray 02/13/17 0000 Signed Impressions: Service Date/Time: Monday, February 13, 2017 18:17 - CONCLUSION: 1. Proximal displaced fibular fracture. 2. Fracture of the proximal/mid shaft of the tibia. 3. Probable lateral tibial plateau fracture. Arnol Torres MD Tibia/Fibula X-Ray 02/13/17 0000 Signed Impressions: Service Date/Time: Monday, February 13, 2017 18:28 - CONCLUSION: Negative limited single AP view. If any concern remains then a 2 view study would be recommended. Shyam Barrett MD Procedures 1) Right Tibia Intramedullary Rodding with Synthes Suprapatellar Approach 2) Right Open Tibia Irrigation and Debridement Objective Remarks Right knee Gildardo wrap and dressing C/D/I calves soft negative Lois's NVI knee immobilizer in place Assessment & Plan Problem List: (1) Pneumothorax (2) Spleen hematoma (3) Open fracture of right tibia and fibula (4) Scapular fracture Assessment and Plan POD #2 1) Right Tibia Intramedullary Rodding with Synthes Suprapatellar Approach 2) Right Open Tibia Irrigation and Debridement Reviewed MRI images which demonstrates strains to both medial collateral ligament and lateral collateral ligament, also an avulsion fracture to the lateral aspect of the lateral tibial plateau. The right ankle x-rays demonstrates a nondisplaced navicular fracture. At this time conservative management. 

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
[2017-02-15] MEDS: ACETAMINOPHEN/HYDROcodone 325 MG/5 MG TAB PO PRN (13:27)
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
[2017-02-15] MEDS: FAMOTIDINE 20 MG TAB PO SCH (20:15)
[2017-02-15] MEDS: REMOVE OLD PATCH T-DERMAL SCH (20:18)
[2017-02-15] MEDS: KETOROLAC TROMETHAMINE 30 MG/ML (IVP) VIAL IV PUSH SCH (21:35)
[2017-02-16] VITALS (8 sets, daily range): BP systolic 117–136; BP diastolic 58–78; PULSE 84–104; RESP 16–20; TEMP 96.4–101.3; O2SAT 90–100
[2017-02-16] MEDS ORDERED: BACITRACIN OINT 0.9 GM PKT TOP PRN (00:30)
[2017-02-16] MEDS: ENOXAPARIN SODIUM 40 MG/0.4 ML SYRINGE SQ SCH (01:42)
[2017-02-16] MEDS: SODIUM CHLOR 0.45% 1000 ML INJ 1,000 ML IV SCH ×2 (01:45→13:05)
[2017-02-16] MEDS: RESP: ALBUTEROL 2.5 MG/IPRATROPIUM 0.5 MG NEB (SCH) NEB ×4 (03:44→22:08)
[2017-02-16] MEDS: diphenhydrAMINE HCL 25 MG CAP PO PRN (03:58)
[2017-02-16] MEDS: KETOROLAC TROMETHAMINE 30 MG/ML (IVP) VIAL IV PUSH SCH ×4 (03:59→21:59)
[2017-02-16] MEDS: CHLORHEXIDINE GLUCONATE 2 % 1 PACK (2 CLOTHS) TOP SCH (04:00)
[2017-02-16] MEDS: PCA - TOTAL MG MORPHINE DELIVERED PER SHIFT SCH ×3 (05:19→22:00)
[2017-02-16] MEDS: METHOCARBAMOL 500 MG TAB PO SCH ×3 (05:19→21:59)
[2017-02-16 05:24] LABS: AUTOMATED NEUTROPHIL # 5.5 TH/MM3 (1.8-7.7); BASOPHIL % 0.3 % (0.0-2.0); EOSINOPHIL # 0.1 TH/MM3 (0-0.4); HEMATOCRIT 26.2 % (39.0-51.0); HEMO FLAGS DIFF FINAL; LYMPH % 14.3 % (9.0-44.0); MEAN CELL VOLUME 86.6 FL (80.0-100.0); MEAN CORPUSCULAR HEMOGLOBIN 30.4 PG (27.0-34.0); MEAN CORPUSCULAR HGB CONC 35.1 % (32.0-36.0); MONO % 5.4 % (0.0-8.0); PLATELET COUNT 143 TH/MM3 (150-450); RED BLOOD COUNT 3.03 MIL/MM3 (4.50-5.90); RED CELL DISTRIBUTION WIDTH 13.4 % (11.6-17.2)
[2017-02-16 05:44] LABS: ALT (GPT) 30 U/L (12-78); ANION GAP 8 MEQ/L (5-15); AST (GOT) 58 U/L (15-37); BICARBONATE 26.7 MEQ/L (21.0-32.0); BLOOD UREA NITROGEN 8 MG/DL (7-18); CHLORIDE 101 MEQ/L (98-107); GLOMERULAR FILTRATION RATE 107 ML/MIN (>89); POTASSIUM 3.5 MEQ/L (3.5-5.1); SODIUM (NA) 136 MEQ/L (136-145)
[2017-02-16 05:45] LABS: ALKALINE PHOSPHATASE 54 U/L (45-117); TOTAL BILIRUBIN ADULT 0.3 MG/DL (0.2-1.0)
[2017-02-16] MEDS: MORPHINE SULFATE 30 MG/30 ML PCA IV SCH ×2 (06:03→17:43)
--- NOTE | 2017-02-16 06:24 | RADRPT ---
EXAM DATE/TIME: 02/16/2017 04:55 [facility] COMPARISON: CHEST SINGLE AP, February 15, 2017, 5:11. INDICATIONS : Short of breath, coughing, pain on right side, evaluate chest tube MEDICAL HISTORY : Hypertension. pneumothorax SURGICAL HISTORY : ORIF right tibia, chest tube ENCOUNTER: Subsequent ACUITY: 4 - 6 days PAIN SCORE: 8/10 LOCATION: Bilateral chest FINDINGS: Chest tube is noted. I do not see a pneumothorax. Extensive soft tissue emphysema is seen along the r ight neck and chest. There is patchy left lower lobe airspace disease improved from previous. Small l eft effusion. Comminuted right scapular fracture. CONCLUSION: Improved aeration left lung. Sb Cooper MD on February 16, 2017 at 6:22 Board Certified Radiologist. This report was verified electronically.
[2017-02-16] MEDS: CALCIUM/VITAMIN D 250 MG/125 U TAB PO SCH ×3 (08:17→16:44)
[2017-02-16] MEDS: MULTIVITAMINS/MINERALS THERAPEUTIC TAB PO SCH (08:17)
[2017-02-16] MEDS: FOLIC ACID 1 MG TAB PO SCH (08:17)
[2017-02-16] MEDS: THIAMINE HCL 100 MG TAB PO SCH (08:17)
[2017-02-16] MEDS: DOCUSATE SODIUM 50 MG/SENNA 8.6 MG TAB PO SCH ×2 (08:18→21:59)
[2017-02-16] MEDS: LIDOCAINE HCL 5% PATCH TD SCH (08:18)
[2017-02-16] MEDS: NEOMYCIN/POLYMYXIN/BACITRACIN OINT 0.9 GM PACKET TOPICAL SCH ×2 (08:18→22:25)
[2017-02-16] MEDS: LACTULOSE SYRUP 20 GM/30 ML CUP PO SCH ×2 (08:19→15:23)
[2017-02-16] MEDS: POLYETHYLENE GLYCOL 17 GM PKG PO SCH (08:19)
[2017-02-16] MEDS: SODIUM CHLORIDE 0.9% FLUSH 5 ML FLUSH IVF SCH ×2 (08:19→21:58)
--- NOTE | 2017-02-16 08:27 | PD.ORT.PN ---
Subjective Subjective Remarks Right Leg and Shoulder Pain Objective Vitals Vital Signs Date Time Temp Pulse Resp B/P Pulse Ox O2 Delivery O2 Flow Rate FiO2 02/16/17 06:03 14 02/16/17 05:19 12 02/16/17 04:59 12 02/16/17 03:59 90 21 02/16/17 00:00 98.8 92 20 132/78 96 02/15/17 22:22 12 02/15/17 22:00 12 02/15/17 21:11 92 21 02/15/17 20:00 99.0 110 20 143/75 94 02/15/17 16:21 18 02/15/17 16:00 99.5 103 17 137/63 96 02/15/17 15:33 18 02/15/17 14:27 19 02/15/17 14:00 19 02/15/17 12:00 98.8 98 25 136/71 97 02/15/17 10:32 19 02/15/17 09:19 94 Nasal Cannula 5.00 I/O 02/15/17 02/15/17 02/15/17 02/16/17 02/16/17 02/16/17 07:00 15:00 23:00 07:00 15:00 23:00 Intake Total 1030 ml 1660 ml 480 ml 480 ml Output Total 765 ml 1980 ml 600 ml 1300 ml Balance 265 ml -320 ml -120 ml -820 ml Intake Oral 240 ml 1660 ml 480 ml 480 ml IV Total 790 ml Output Urine Total 750 ml 1800 ml 600 ml 1300 ml Chest Tube Drainage Total 15 ml 120 ml Drainage Total 60 ml # Bowel Movements 0 0 0 0 Result Diagram: 02/16/17 0440 02/16/17 0440 Imaging Last 24 hours Impressions [address] Spine CT 02/13/171812 Signed Impressions: Service Date/Time: Monday, February 13, 2017 18:45 - CONCLUSION: 1. Fractures of the left transverse process at T1. 2. Fractures of the right transverse processes at T7, T8 and T9. Arnol Torres MD Pelvis X-Ray 02/13/171812 Signed Impressions: Service Date/Time: Monday, February 13, 2017 18:14 - CONCLUSION: Suboptimal study demonstrating no acute fracture. Shyam Barrett MD Maxillofacial CT 02/13/171812 Signed Impressions: Service Date/Time: Monday, February 13, 2017 18:39 - CONCLUSION: 1. No acute facial bone fracture identified. 2. Extensive mucosal thickening and opacification of the paranasal sinuses with air-fluid levels which may indicate acute this. Shyam Barrett MD Lumbar Spine CT 02/13/171812 Signed Impressions: Service Date/Time: Monday, February 13, 2017 18:45 - CONCLUSION: 1. No acute fracture or malalignment. 2. Mild to moderate scoliosis. Shyam Barrett MD Head CT 02/13/171812 Signed Impressions: Service Date/Time: Monday, February 13, 2017 18:39 - CONCLUSION: 1. Soft tissue swelling over left frontal bone with no acute fracture. 2. No evidence of intracranial hemorrhage or mass effect. Shyam Barrett MD Chest X-Ray 02/13/171812 Signed Impressions: Service Date/Time: Monday, February 13, 2017 18:16 - CONCLUSION: Limited study. Multiple right-sided rib fractures and right scapular fracture.. Arnol Torres MD Chest CT 02/13/171812 Signed Impressions: Service Date/Time: Monday, February 13, 2017 18:45 - CONCLUSION: 1. Small right basilar pneumothorax. 2. Small area of lung contusion in the right upper lobe. 3. Nondisplaced fractures of the right lateral third through seventh ribs. Shyam Barrett MD ADDENDUM: There is a comminuted fracture of the right scapula. Shyam Barrett MD Cervical Spine CT 02/13/171812 Signed Impressions: Service Date/Time: Monday, February 13, 2017 18:39 - CONCLUSION: Negative trauma CT. Shyam Barrett MD Abdomen/Pelvis CT 02/13/171812 Signed Impressions: Service Date/Time: Monday, February 13, 2017 18:45 - CONCLUSION: 1. There is an area of linear low-density in the spleen likely representing a small splenic laceration. No hemoperitoneum. 2. Acute findings in lateral chest. Please refer to CT chest for further detail. Arnol Torres MD Tibia/Fibula X-Ray 02/13/17 Signed Impressions: Service Date/Time: Monday, February 13, 2017 18:17 - CONCLUSION: 1. Proximal displaced fibular fracture. 2. Fracture of the proximal/mid shaft of the tibia. 3. Probable lateral tibial plateau fracture. Arnol Torres MD Tibia/Fibula X-Ray 02/13/17 0000 Signed Impressions: Service Date/Time: Monday, February 13, 2017 18:28 - CONCLUSION: Negative limited single AP view. If any concern remains then a 2 view study would be recommended. Shyam Barrett MD Procedures 1) Right Tibia Intramedullary Rodding with Synthes Suprapatellar Approach 2) Right Open Tibia Irrigation and Debridement Objective Remarks Right knee Gildardo wrap and dressing C/D/I calves soft negative Lois's NVI knee immobilizer in place Right shoulder acrtive assisted range of motion improved NVI Assessment & Plan Ortho Post Op Day #: 2 Problem List: (1) Pneumothorax (2) Spleen hematoma (3) Open fracture of right tibia and fibula (4) Scapular fracture Assessment and Plan POD #3 1) Right Tibia Intramedullary Rodding with Synthes Suprapatellar Approach 2) Right Open Tibia Irrigation and Debridement Reviewed MRI images which demonstrates strains to both medial collateral ligament and lateral collateral ligament, also an avulsion fracture to the lateral aspect of the lateral tibial plateau. The right ankle x-rays demonstrates a nondisplaced navicular fracture. At this time conservative management. Pain management - SINTERING PRESS OPERATOR DVT prophylaxis - Lovenox Physical therapy - Non-weight bearing with active assistive ROM RLE D/C planning Monitor Danielito Mckeon MD Feb 16, 2017 08:27
--- NOTE | 2017-02-16 15:18 | HHI.PR ---
Subjective Subjective Notes Got OOB to bathroom today Pain controlled with DYE REEL OPERATOR Objective Vitals/I&O Vital Signs Date Time Temp Pulse Resp B/P Pulse Ox O2 Delivery O2 Flow Rate FiO2 02/16/17 14:00 16 02/16/17 12:00 96.4 84 117/58 98 02/16/17 09:36 Nasal Cannula 3.00 02/16/17 03:59 21 Labs Laboratory Tests Test 02/16/17 04:40 White Blood Count 7.0 Red Blood Count 3.03 Hemoglobin 9.2 Hematocrit 26.2 Mean Corpuscular Volume 86.6 Mean Corpuscular Hemoglobin 30.4 Mean Corpuscular Hemoglobin 35.1 Concent Red Cell Distribution Width 13.4 Platelet Count 143 Mean Platelet Volume 8.6 Neutrophils (%) (Auto) 79.0 Lymphocytes (%) (Auto) 14.3 Monocytes (%) (Auto) 5.4 Eosinophils (%) (Auto) 1.0 Basophils (%) (Auto) 0.3 Neutrophils # (Auto) 5.5 Lymphocytes # (Auto) 1.0 Monocytes # (Auto) 0.4 Eosinophils # (Auto) 0.1 Basophils # (Auto) 0.0 CBC Comment DIFF FINAL Differential Comment Sodium Level 136 Potassium Level 3.5 Chloride Level 101 Carbon Dioxide Level 26.7 Anion Gap 8 Blood Urea Nitrogen 8 Creatinine 0.82 Estimat Glomerular Filtration 107 Rate Random Glucose 123 Calcium Level 8.1 Total Bilirubin 0.3 Aspartate Amino Transf 58 (AST/SGOT) Alanine Aminotransferase 30 (ALT/SGPT) Alkaline Phosphatase 54 Total Protein 5.5 Albumin 2.5 Date/Time Procedure Status Source Growth 02/13/17 22:45 Urine Culture - Final Complete Urine Catheterized Urine NO GROWTH IN 48 HOURS. Radiology Last Impressions Tibia/Fibula X-Ray 02/14/17 0000 Signed Impressions: Service Date/Time: Tuesday, February 14, 2017 01:31 - CONCLUSION: Mark fixation right tibia. Garrison Chi MD Knee MRI 02/14/17 0000 Signed Impressions: Service Date/Time: Tuesday, February 14, 2017 07:36 - CONCLUSION: 1. Avulsion fracture of the lateral aspect lateral tibial plateau. 2. There does appear to be MCL and LCL strains. 3. Extensive soft tissue swelling greatest along the lateral aspect of the knee. 4. Possible small loose bodies posterior to the patella. Arnol Torres MD Chest X-Ray 02/14/17 0000 Signed Impressions: Service Date/Time: Tuesday, February 14, 2017 16:29 - CONCLUSION: 1. Interval placement of right-sided chest tube. The previously noted pneumothorax is no longer visualized. 2. Patchy opacity both lung bases most consistent with atelectasis. 3. Comminuted right scapular fracture. Shyam Barrett MD Ankle X-Ray 02/14/17 0000 Signed Impressions: Service Date/Time: Tuesday, February 14, 2017 08:28 - CONCLUSION: 1. Internal fixation of the tibia. 2. Soft tissue swelling/emphysema laterally. 3. Minimal lucency within the superior navicular bone seen only on lateral view could be related to nondisplaced fracture. Arnol Torres MD Thoracic Spine CT 02/13/171812 Signed Impressions: Service Date/Time: Monday, February 13, 2017 18:45 - CONCLUSION: 1. Fractures of the left transverse process at T1. 2. Fractures of the right transverse processes at T7, T8 and T9. Arnol Torres MD Pelvis X-Ray 02/13/171812 Signed Impressions: Service Date/Time: Monday, February 13, 2017 18:14 - CONCLUSION: Suboptimal study demonstrating no acute fracture. Shyam Barrett MD Maxillofacial CT 02/13/171812 Signed Impressions: Service Date/Time: Monday, February 13, 2017 18:39 - CONCLUSION: 1. No acute facial bone fracture identified. 2. Extensive mucosal thickening and opacification of the paranasal sinuses with air-fluid levels which may indicate acute this. Shyam Barrett MD Lumbar Spine CT 02/13/171812 Signed Impressions: Service Date/Time: Monday, February 13, 2017 18:45 - CONCLUSION: 1. No acute fracture or malalignment. 2. Mild to moderate scoliosis. Shyam Barrett MD Head CT 02/13/171812 Signed Impressions: Service Date/Time: Monday, February 13, 2017 18:39 - CONCLUSION: 1. Soft tissue swelling over left frontal bone with no acute fracture. 2. No evidence of intracranial hemorrhage or mass effect. Shyam Barrett MD Chest CT 02/13/171812 Signed Impressions: Service Date/Time: Monday, February 13, 2017 18:45 - CONCLUSION: 1. Small right basilar pneumothorax. 2. Small area of lung contusion in the right upper lobe. 3. Nondisplaced fractures of the right lateral third through seventh ribs. Shyam Barrett MD ADDENDUM: There is a comminuted fracture of the right scapula. Shyam Barrett MD Cervical Spine CT 02/13/171812 Signed Impressions: Service Date/Time: Monday, February 13, 2017 18:39 - CONCLUSION: Negative trauma CT. Shyam Barrett MD Abdomen/Pelvis CT 02/13/171812 Signed Impressions: Service Date/Time: Monday, February 13, 2017 18:45 - CONCLUSION: 1. There is an area of linear low-density in the spleen likely representing a small splenic laceration. No hemoperitoneum. 2. Acute findings in lateral chest. Please refer to CT chest for further detail. Arnol Torres MD Narrative Exam GENERAL: 36-year-old well-nourished, well developed male lying in bed. SKIN: Warm and dry. HEAD: Normocephalic. ENT: No nasal bleeding or discharge. Mucous membranes pink and moist. NECK: Trachea midline. No JVD. CARDIOVASCULAR: Regular rate and rhythm. RESPIRATORY: No accessory muscle use. Lungs clear to auscultation. Breath sounds equal bilaterally. Right lateral CT in place to waterseal. No leak. GASTROINTESTINAL: Abdomen soft, non-tender, nondistended. + BS. MUSCULOSKELETAL: Extremities without cyanosis, +1 RLE edema. RLE with CPM device in place. NEUROLOGICAL: Awake and alert. Normal speech. A/P Problem List: (1) Alcohol intoxication (2) Closed head injury (3) Facial laceration (4) Pneumothorax (5) Spleen hematoma (6) Open fracture of right tibia and fibula (7) Scapular fracture (8) Internal derangement of right knee (9) Multiple rib fractures Assessment and Plan INJURIES: RIGHT scapula fx RIGHT rib fx (3-7) Small RIGHT PTX RUL contusion T1, T7, T8, T9 transverse fx Grade 1 splenic lac Open RIGHT tib/fib fx questionable right navicular fracture 02/13: Right tibia IM mark - I&D. Diet: Regular Pulm: IS, acapella. EZ pap. nebs. Pain: [place]. 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 Robaxin. Lidoderm patch. Activity: PT and OT ordered. GI: Pepcid. Bowel: Luciana-colace. Lactulose. No BM yet. Added Miralax. Refusing Bowel regimen and educated on narcotic constipation. DVT: SCD's. Lovenox 40. Discontinue IV Ancef. Plan of care discussed patient at bedside. CXR in a.m. to evaluate for chest tube removal. CXR today shows no pneumothorax. CT placed to waterseal. Problem Qualifiers (1) Spleen hematoma: Qualified Code: S36.029A - Spleen hematoma, initial encounter Jose Lauren Feb 16, 2017 15:18
[2017-02-16] MEDS: REMOVE OLD PATCH T-DERMAL SCH (21:00)
[2017-02-16] MEDS: FAMOTIDINE 20 MG TAB PO SCH (21:58)
[2017-02-16] MEDS: ACETAMINOPHEN/HYDROcodone 325 MG/5 MG TAB PO PRN (21:58)
[2017-02-17] VITALS (8 sets, daily range): BP systolic 106–132; BP diastolic 55–63; PULSE 78–90; RESP 18–20; TEMP 98.1–99.4; O2SAT 93–100
[2017-02-17] MEDS: ENOXAPARIN SODIUM 40 MG/0.4 ML SYRINGE SQ SCH (03:18)
[2017-02-17] MEDS: KETOROLAC TROMETHAMINE 30 MG/ML (IVP) VIAL IV PUSH SCH ×4 (03:19→20:33)
[2017-02-17] MEDS: RESP: ALBUTEROL 2.5 MG/IPRATROPIUM 0.5 MG NEB (SCH) NEB ×4 (03:35→21:28)
[2017-02-17] MEDS: CHLORHEXIDINE GLUCONATE 2 % 1 PACK (2 CLOTHS) TOP SCH (04:00)
[2017-02-17] MEDS: PCA - TOTAL MG MORPHINE DELIVERED PER SHIFT SCH ×3 (04:25→22:00)
[2017-02-17] MEDS: MORPHINE SULFATE 30 MG/30 ML PCA IV SCH (04:25)
[2017-02-17] MEDS: METHOCARBAMOL 500 MG TAB PO SCH ×3 (04:31→20:33)
[2017-02-17 05:04] LABS: HEMATOCRIT 24.5 % (39.0-51.0); REVIEW FLAG FINAL
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
[2017-02-17] MEDS: NEOMYCIN/POLYMYXIN/BACITRACIN OINT 0.9 GM PACKET TOPICAL SCH ×2 (09:00→21:00)
[2017-02-17] MEDS: LACTULOSE SYRUP 20 GM/30 ML CUP PO SCH (09:00)
[2017-02-17] MEDS: SODIUM CHLORIDE 0.9% FLUSH 5 ML FLUSH IVF SCH ×2 (09:00→20:33)
[2017-02-17] MEDS: DOCUSATE SODIUM 50 MG/SENNA 8.6 MG TAB PO SCH ×2 (09:00→20:33)
[2017-02-17] MEDS: MULTIVITAMINS/MINERALS THERAPEUTIC TAB PO SCH (09:11)
[2017-02-17] MEDS: THIAMINE HCL 100 MG TAB PO SCH (09:11)
[2017-02-17] MEDS: POLYETHYLENE GLYCOL 17 GM PKG PO SCH (09:11)
[2017-02-17] MEDS: CALCIUM/VITAMIN D 250 MG/125 U TAB PO SCH ×3 (09:11→16:40)
[2017-02-17] MEDS: FOLIC ACID 1 MG TAB PO SCH (09:11)
[2017-02-17] MEDS: LIDOCAINE HCL 5% PATCH TD SCH (09:12)
[2017-02-17] MEDS: ACETAMINOPHEN/HYDROcodone 325 MG/5 MG TAB PO PRN ×2 (12:14→18:16)
--- NOTE | 2017-02-17 14:17 | HHI.PR ---
Subjective Subjective Notes Hasn't been OOB yet. Reports pain at CT site. Objective Vitals/I&O Vital Signs Date Time Temp Pulse Resp B/P Pulse Ox O2 Delivery O2 Flow Rate FiO2 02/17/17 10:05 93 21.00 02/17/17 08:00 98.1 78 19 112/57 02/17/17 03:37 Nasal Cannula 02/16/17 03:59 21 Labs Laboratory Tests Test 02/17/17 04:16 Hemoglobin 8.5 Hematocrit 24.5 Date/Time Procedure Status Source Growth 02/13/17 22:45 Urine Culture - Final Complete Urine Catheterized Urine NO GROWTH IN 48 HOURS. Radiology Last Impressions Tibia/Fibula X-Ray 02/14/17 0000 Signed Impressions: Service Date/Time: Tuesday, February 14, 2017 01:31 - CONCLUSION: Mark fixation right tibia. Garrison Chi MD Knee MRI 02/14/17 0000 Signed Impressions: Service Date/Time: Tuesday, February 14, 2017 07:36 - CONCLUSION: 1. Avulsion fracture of the lateral aspect lateral tibial plateau. 2. There does appear to be MCL and LCL strains. 3. Extensive soft tissue swelling greatest along the lateral aspect of the knee. 4. Possible small loose bodies posterior to the patella. Arnol Torres MD Chest X-Ray 02/14/17 0000 Signed Impressions: Service Date/Time: Tuesday, February 14, 2017 16:29 - CONCLUSION: 1. Interval placement of right-sided chest tube. The previously noted pneumothorax is no longer visualized. 2. Patchy opacity both lung bases most consistent with atelectasis. 3. Comminuted right scapular fracture. Shyam Barrett MD Ankle X-Ray 02/14/17 0000 Signed Impressions: Service Date/Time: Tuesday, February 14, 2017 08:28 - CONCLUSION: 1. Internal fixation of the tibia. 2. Soft tissue swelling/emphysema laterally. 3. Minimal lucency within the superior navicular bone seen only on lateral view could be related to nondisplaced fracture. Arnol Torres MD Thoracic Spine CT 02/13/171812 Signed Impressions: Service Date/Time: Monday, February 13, 2017 18:45 - CONCLUSION: 1. Fractures of the left transverse process at T1. 2. Fractures of the right transverse processes at T7, T8 and T9. Arnol Torres MD Pelvis X-Ray 02/13/171812 Signed Impressions: Service Date/Time: Monday, February 13, 2017 18:14 - CONCLUSION: Suboptimal study demonstrating no acute fracture. Shyam Barrett MD Maxillofacial CT 02/13/171812 Signed Impressions: Service Date/Time: Monday, February 13, 2017 18:39 - CONCLUSION: 1. No acute facial bone fracture identified. 2. Extensive mucosal thickening and opacification of the paranasal sinuses with air-fluid levels which may indicate acute this. Shyam Barrett MD Lumbar Spine CT 02/13/171812 Signed Impressions: Service Date/Time: Monday, February 13, 2017 18:45 - CONCLUSION: 1. No acute fracture or malalignment. 2. Mild to moderate scoliosis. Shyam Barrett MD Head CT 02/13/171812 Signed Impressions: Service Date/Time: Monday, February 13, 2017 18:39 - CONCLUSION: 1. Soft tissue swelling over left frontal bone with no acute fracture. 2. No evidence of intracranial hemorrhage or mass effect. Shyam Barrett MD Chest CT 02/13/171812 Signed Impressions: Service Date/Time: Monday, February 13, 2017 18:45 - CONCLUSION: 1. Small right basilar pneumothorax. 2. Small area of lung contusion in the right upper lobe. 3. Nondisplaced fractures of the right lateral third through seventh ribs. Shyam Barrett MD ADDENDUM: There is a comminuted fracture of the right scapula. Shyam Barrett MD Cervical Spine CT 02/13/171812 Signed Impressions: Service Date/Time: Monday, February 13, 2017 18:39 - CONCLUSION: Negative trauma CT. Shyam Barrett MD Abdomen/Pelvis CT 02/13/171812 Signed Impressions: Service Date/Time: Monday, February 13, 2017 18:45 - CONCLUSION: 1. There is an area of linear low-density in the spleen likely representing a small splenic laceration. No hemoperitoneum. 2. Acute findings in lateral chest. Please refer to CT chest for further detail. Arnol Torres MD Narrative Exam GENERAL: 36-year-old well-nourished, well developed male lying in bed. SKIN: Warm and dry. HEAD: Normocephalic. ENT: No nasal bleeding or discharge. Mucous membranes pink and moist. NECK: Trachea midline. No JVD. CARDIOVASCULAR: Regular rate and rhythm. RESPIRATORY: No accessory muscle use. Lungs clear to auscultation. Breath sounds equal bilaterally. Right lateral CT in place. No air leak. GASTROINTESTINAL: Abdomen soft, non-tender, nondistended. + BS. MUSCULOSKELETAL: Extremities without cyanosis, +1 RLE edema. RLE with CPM device in place. NEUROLOGICAL: Awake and alert. Normal speech. A/P Problem List: (1) Alcohol intoxication (2) Closed head injury (3) Facial laceration (4) Pneumothorax (5) Spleen hematoma (6) Open fracture of right tibia and fibula (7) Scapular fracture (8) Internal derangement of right knee (9) Multiple rib fractures Assessment and Plan INJURIES: RIGHT scapula fx RIGHT rib fx (3-7) Small RIGHT PTX RUL contusion T1, T7, T8, T9 transverse fx Grade 1 splenic lac Open RIGHT tib/fib fx questionable right navicular fracture 02/13: Right tibia IM mark - I&D. Diet: Regular, tolerating Pulm: IS, acapella. EZ pap. nebs. Pain: [place]. Robaxin. Lidoderm patch. 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 Activity: PT and OT evaluating. GI: Pepcid. Bowel: Luciana-colace. Lactulose. No BM yet. Miralax. Refusing Bowel regimen and educated on narcotic constipation. DVT: SCD's. Lovenox 40. Plan of care discussed patient at bedside. CXR today shows no pneumothorax. Plan to discontinue chest tube today. CXR in a.m. Case management consulted for discharge planning. Problem Qualifiers (1) Spleen hematoma: Qualified Code: S36.029A - Spleen hematoma, initial encounter Jose Lauren Feb 17, 2017 14:17
[2017-02-17] MEDS: FAMOTIDINE 20 MG TAB PO SCH (20:33)
[2017-02-17] MEDS: REMOVE OLD PATCH T-DERMAL SCH (21:00)
[2017-02-18] VITALS: BP 135/63; PULSE 102; RESP 20; TEMP 99; O2SAT 93
[2017-02-18] MEDS: ENOXAPARIN SODIUM 40 MG/0.4 ML SYRINGE SQ SCH (02:03)
[2017-02-18] MEDS: KETOROLAC TROMETHAMINE 30 MG/ML (IVP) VIAL IV PUSH SCH ×3 (02:03→13:47)
[2017-02-18] MEDS: ACETAMINOPHEN/HYDROcodone 325 MG/5 MG TAB PO PRN ×3 (02:03→16:39)
[2017-02-18 04:00] VITALS: BP 133/67; PULSE 87; RESP 20; TEMP 98.3; O2SAT 98
[2017-02-18 05:34] LABS: AUTOMATED NEUTROPHIL # 3.9 TH/MM3 (1.8-7.7); BASOPHIL % 0.4 % (0.0-2.0); EOSINOPHIL # 0.3 TH/MM3 (0-0.4); EOSINOPHIL % 5.5 % (0.0-4.0); HEMATOCRIT 24.9 % (39.0-51.0); HEMO FLAGS DIFF FINAL; LYMPH % 14.3 % (9.0-44.0); LYMPHOCYTE # 0.8 TH/MM3 (1.0-4.8); MEAN CELL VOLUME 86.1 FL (80.0-100.0); MEAN CORPUSCULAR HEMOGLOBIN 28.9 PG (27.0-34.0); MEAN CORPUSCULAR HGB CONC 33.5 % (32.0-36.0); NEUT % 73.8 % (16.0-70.0); PLATELET COUNT 202 TH/MM3 (150-450); RED BLOOD COUNT 2.89 MIL/MM3 (4.50-5.90); RED CELL DISTRIBUTION WIDTH 13.1 % (11.6-17.2); WHITE BLOOD COUNT 5.3 TH/MM3 (4.0-11.0)
[2017-02-18] MEDS: METHOCARBAMOL 500 MG TAB PO SCH ×3 (05:45→13:46)
[2017-02-18 05:59] LABS: ALT (GPT) 38 U/L (12-78); ANION GAP 8 MEQ/L (5-15); AST (GOT) 49 U/L (15-37); BICARBONATE 28.2 MEQ/L (21.0-32.0); BLOOD UREA NITROGEN 12 MG/DL (7-18); CHLORIDE 102 MEQ/L (98-107); GLOMERULAR FILTRATION RATE 97 ML/MIN (>89); POTASSIUM 4.2 MEQ/L (3.5-5.1); SODIUM (NA) 138 MEQ/L (136-145)
[2017-02-18] MEDS: PCA - TOTAL MG MORPHINE DELIVERED PER SHIFT SCH ×2 (06:00→12:30)
[2017-02-18 06:01] LABS: ALKALINE PHOSPHATASE 62 U/L (45-117); TOTAL BILIRUBIN ADULT 0.4 MG/DL (0.2-1.0)
--- NOTE | 2017-02-18 07:35 | RADRPT ---
EXAM DATE/TIME: 02/18/2017 06:24 [facility] COMPARISON: CHEST SINGLE AP, February 17, 2017, 6:58. INDICATIONS : Evaluate right chest one day post chest tube removal MEDICAL HISTORY : Hypertension. SURGICAL HISTORY : tibia ORIF, right ENCOUNTER: Subsequent ACUITY: 1 week PAIN SCORE: 2/10 LOCATION: Right chest FINDINGS: The right lung remains expanded. No evidence of pneumothorax. Minimal subpleural thickening again not ed along lateral right chest wall. There is persistent consolidative change in the contralateral left lung base. Cardiomediastinal contours are stable. Subcutaneous emphysema in the right chest continue s to resolve. CONCLUSION: No pneumothorax. Persistent left base consolidative changes José Hartman MD on February 18, 2017 at 7:31 Board Certified Radiologist. This report was verified electronically.
[2017-02-18 08:00] VITALS: BP 128/70; PULSE 86; RESP 20; TEMP 98.1; O2SAT 96
[2017-02-18] MEDS ORDERED: WALKER/FOLDING1 MIS (08:06)
--- NOTE | 2017-02-18 08:08 | HHI.FF ---
Face to Face Verification Diagnosis: (1) Open fracture of right tibia and fibula (2) Closed head injury (3) Multiple rib fractures (4) Scapular fracture (5) Internal derangement of right knee Physical Therapy Order: Evaluate and Treat, Improve ambulation, Strength and gait training Occupational Therapy Order: Evaluate and Treat, Improve ADL, Fine motor coordination Home Health Nursing Order: Nursing assessment with vital signs I have seen patient Danielito Humphreys on 02/18/17. My clinical findings support the need for the requested home health care services because: Deconditioned w/ increased weakness Limited ability to care for self High risk of falls I certify that my clinical findings support that this patient is homebound because: Unsteady gait/balance Jose Lauren Feb 18, 2017 08:08
[2017-02-18] MEDS: DOCUSATE SODIUM 50 MG/SENNA 8.6 MG TAB PO SCH (08:12)
[2017-02-18] MEDS: LACTULOSE SYRUP 20 GM/30 ML CUP PO SCH (08:12)
[2017-02-18] MEDS: CALCIUM/VITAMIN D 250 MG/125 U TAB PO SCH ×2 (08:13→12:31)
[2017-02-18] MEDS: FOLIC ACID 1 MG TAB PO SCH (08:13)
[2017-02-18] MEDS: MULTIVITAMINS/MINERALS THERAPEUTIC TAB PO SCH (08:13)
[2017-02-18] MEDS: THIAMINE HCL 100 MG TAB PO SCH (08:13)
[2017-02-18] MEDS: LIDOCAINE HCL 5% PATCH TD SCH (08:16)
[2017-02-18] MEDS: NEOMYCIN/POLYMYXIN/BACITRACIN OINT 0.9 GM PACKET TOPICAL SCH (08:16)
[2017-02-18] MEDS: POLYETHYLENE GLYCOL 17 GM PKG PO SCH (08:22)
[2017-02-18] MEDS: SODIUM CHLORIDE 0.9% FLUSH 5 ML FLUSH IVF SCH (08:22)
[2017-02-18] MEDS ORDERED: MAGNESIUM CITRATE SOLN 300 ML BTL PO ONE (09:00)
[2017-02-18 12:00] VITALS: BP 143/67; PULSE 100; RESP 20; TEMP 97.9; O2SAT 100
[2017-02-18] MEDS ORDERED: HYDR-3516 PO (12:18)
[2017-02-18 12:27] VITALS: O2SAT 98
--- NOTE | 2017-02-18 14:43 | PD.ORT.PN ---
Subjective Subjective Remarks Patient comfortable. Pain controlled. Family at bedside. Objective Vitals Vital Signs Date Time Temp Pulse Resp B/P Pulse Ox O2 Delivery O2 Flow Rate FiO2 02/18/17 12:27 98 Nasal Cannula 21 02/18/17 12:00 97.9 100 20 143/67 100 02/18/17 08:00 98.1 86 20 128/70 96 02/18/17 04:00 98.3 87 20 133/67 98 02/18/17 00:00 99.0 102 20 135/63 93 02/17/17 20:00 99.4 89 20 132/60 100 02/17/17 16:00 99.4 90 20 132/63 98 02/17/17 15:45 99 21 I/O 02/17/17 02/17/17 02/17/17 02/18/17 02/18/17 02/18/17 07:00 15:00 23:00 07:00 15:00 23:00 Intake Total 480 ml 1520 ml 640 ml 480 ml Output Total 1350 ml 1600 ml 850 ml 950 ml Balance -870 ml -80 ml -210 ml -470 ml Intake Oral 480 ml 1520 ml 640 ml 480 ml Output Urine Total 1350 ml 1600 ml 850 ml 950 ml # Bowel Movements 0 0 0 Result Diagram: 02/18/17 0504 02/18/17 0504 Imaging Last 24 hours Impressions [address] Spine CT 02/13/171812 Signed Impressions: Service Date/Time: Monday, February 13, 2017 18:45 - CONCLUSION: 1. Fractures of the left transverse process at T1. 2. Fractures of the right transverse processes at T7, T8 and T9. Arnol Torres MD Pelvis X-Ray 02/13/171812 Signed Impressions: Service Date/Time: Monday, February 13, 2017 18:14 - CONCLUSION: Suboptimal study demonstrating no acute fracture. Shyam Barrett MD Maxillofacial CT 02/13/171812 Signed Impressions: Service Date/Time: Monday, February 13, 2017 18:39 - CONCLUSION: 1. No acute facial bone fracture identified. 2. Extensive mucosal thickening and opacification of the paranasal sinuses with air-fluid levels which may indicate acute this. Shyam Barrett MD Lumbar Spine CT 02/13/171812 Signed Impressions: Service Date/Time: Monday, February 13, 2017 18:45 - CONCLUSION: 1. No acute fracture or malalignment. 2. Mild to moderate scoliosis. Shyam Barrett MD Head CT 02/13/171812 Signed Impressions: Service Date/Time: Monday, February 13, 2017 18:39 - CONCLUSION: 1. Soft tissue swelling over left frontal bone with no acute fracture. 2. No evidence of intracranial hemorrhage or mass effect. Shyam Barrett MD Chest X-Ray 02/13/171812 Signed Impressions: Service Date/Time: Monday, February 13, 2017 18:16 - CONCLUSION: Limited study. Multiple right-sided rib fractures and right scapular fracture.. Arnol Torres MD Chest CT 02/13/171812 Signed Impressions: Service Date/Time: Monday, February 13, 2017 18:45 - CONCLUSION: 1. Small right basilar pneumothorax. 2. Small area of lung contusion in the right upper lobe. 3. Nondisplaced fractures of the right lateral third through seventh ribs. Shyam Barrett MD ADDENDUM: There is a comminuted fracture of the right scapula. Shyam Barrett MD Cervical Spine CT 02/13/171812 Signed Impressions: Service Date/Time: Monday, February 13, 2017 18:39 - CONCLUSION: Negative trauma CT. Shyam Barrett MD Abdomen/Pelvis CT 02/13/171812 Signed Impressions: Service Date/Time: Monday, February 13, 2017 18:45 - CONCLUSION: 1. There is an area of linear low-density in the spleen likely representing a small splenic laceration. No hemoperitoneum. 2. Acute findings in lateral chest. Please refer to CT chest for further detail. Arnol Torres MD Tibia/Fibula X-Ray 02/13/17 0000 Signed Impressions: Service Date/Time: Monday, February 13, 2017 18:17 - CONCLUSION: 1. Proximal displaced fibular fracture. 2. Fracture of the proximal/mid shaft of the tibia. 3. Probable lateral tibial plateau fracture. Arnol Torres MD Tibia/Fibula X-Ray 02/13/17 0000 Signed Impressions: Service Date/Time: Monday, February 13, 2017 18:28 - CONCLUSION: Negative limited single AP view. If any concern remains then a 2 view study would be recommended. Shyam Barrett MD Procedures 1) Right Tibia Intramedullary Rodding with Synthes Suprapatellar Approach 2) Right Open Tibia Irrigation and Debridement Objective Remarks Right knee Gildardo wrap and dressing C/D/I calves soft negative Lois's NVI knee immobilizer in place Right shoulder active assisted range of motion improved NVI Assessment & Plan Problem List: (1) Pneumothorax (2) Spleen hematoma (3) Open fracture of right tibia and fibula (4) Scapular fracture Assessment and Plan POD #5 1) Right Tibia Intramedullary Rodding with Synthes Suprapatellar Approach 2) Right Open Tibia Irrigation and Debridement Pain management DVT prophylaxis - Lovenox Physical therapy - Non-weight bearing with active assistive ROM RLE Orthopedically stable for discharge D/C planning - home (patient lives in [place]) He is planning to f/u with orthopedic surgeon back home. If not, he will f/u with Dr. Mckeon or KULDIP in the office in 2 weeks. Monitor Luigi Pedraza Feb 18, 2017 14:43
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
== END 2017-02-18 17:16 | disposition home health service (06) | DRG 958 ==
LOC: NEPC 17:56 → NEDA 19:46 → HPAC 02-14 02:54 → N07B 02-14 14:17
PROVIDERS: ADMIT Surgery Trauma Surgery; ATTEND Surgery Trauma Surgery
PROC: 0QSG06Z Reposition Right Tibia with Intramedullary Internal Fixation Device, Open Approach (ICD-10-PCS; principal; 2017-02-14)
PROC: 0W9930Z Drainage of Right Pleural Cavity with Drainage Device, Percutaneous Approach (ICD-10-PCS; 2017-02-14)
DX: S82.201B Unspecified fracture of shaft of right tibia, initial encounter for open fracture type I or II (principal); S27.0XXA Traumatic pneumothorax, initial encounter; J90 Pleural effusion, not elsewhere classified; S36.030A Superficial (capsular) laceration of spleen, initial encounter; S22.031A Stable burst fracture of third thoracic vertebra, initial encounter for closed fracture; S27.321A Contusion of lung, unilateral, initial encounter; S22.41XA Multiple fractures of ribs, right side, initial encounter for closed fracture; S22.041A Stable burst fracture of fourth thoracic vertebra, initial encounter for closed fracture; S22.051A Stable burst fracture of T5-T6 vertebra, initial encounter for closed fracture; S22.061A Stable burst fracture of T7-T8 vertebra, initial encounter for closed fracture; S22.071A Stable burst fracture of T9-T10 vertebra, initial encounter for closed fracture; S82.831B Other fracture of upper and lower end of right fibula, initial encounter for open fracture type I or II; S42.101A Fracture of unspecified part of scapula, right shoulder, initial encounter for closed fracture; S82.141B Displaced bicondylar fracture of right tibia, initial encounter for open fracture type I or II; F10.129 Alcohol abuse with intoxication, unspecified; S01.81XA Laceration without foreign body of other part of head, initial encounter; S92.253A Displaced fracture of navicular [scaphoid] of unspecified foot, initial encounter for closed fracture; S83.421A Sprain of lateral collateral ligament of right knee, initial encounter; D72.828 Other elevated white blood cell count; F17.210 Nicotine dependence, cigarettes, uncomplicated; V23.4XXA Motorcycle driver injured in collision with car, pick-up truck or van in traffic accident, initial encounter; Y90.6 Blood alcohol level of 120-199 mg/100 ml
CPT/HCPCS: 70450; 70486; 71010; 71260; 72125; 72128; 72131; 72170; 73590; 73600; 73721; 74177; 76000; 76937; 80048; 80053; 80307; 81001; 82435; 82565; 82947; 83735; 84132; 84155; 84295; 84520; 85014; 85018; 85025; 85610; 85730; 86850; 86900; 86901; 87086; 90715; 94150; 94640; 94664; 94667; 94668; C1713; J0131; J0690; J1580; J1650; J1885; J2250; J2270; J2405; J3010; J7030; J7120; L0150; Q9967